=== PATIENT | male | born 1965 | race African-American/Black ===

== ENCOUNTER 2021-06-12 07:56 | Outpatient (CLI) | payer OTHER, SELFPAY ==
[2021-06-12 08:27] LABS: Absolute Lymphocyte Count 2.74 X10^3/uL (0.83-4.51); Absolute Neutrophil Count 3.1 X10^3/uL (2.0-7.7); Basophil# 0.04 X10^3/uL; Basophil% 0.6 % (0-1); Eosinophils% 5.8 % (0-5); Hematocrit 39.5 % (40-54); Hemoglobin 13.5 g/dL (13.0-16.5); Lymphocyte # 2.74 X10^3/ul (0.83-4.51); Lymphocyte % 39.9 % (19-41); Mean Corp Hgb Conc 34.2 g/dL (32-36); Mean Corpuscular Hgb 34.2 pg (27.0-32.0); Mean Platelet Vol. 8.3 fl (6.2-12.0); Monocyte# 0.53 X10^3/uL; Monocyte% 7.7 % (0-10); NRBC Flagged by Analyzer 0 % (0-5); Neutrophil # 3.14 X10^3/uL (2.7-7.7); Neutrophil % 45.7 % (47-70); Platelet Count 349 K/mm3 (150-450); RBC Distribution Width CV 11.9 % (11.6-14.6); RBC Distribution Width SD 44.4 fl (35.1-43.9); Red Blood Count 3.95 M/mm3 (4.6-6.2); White Blood Count 6.9 K/mm3 (4.4-11.0)
[2021-06-12 09:23] LABS: Hemoglobin A1c 5.8 % (3.8-5.6)
[2021-06-12 09:24] LABS: ALB/GLOB Ratio 0.9 RATIO (0.9-2.4); AST(SGOT) 19 U/L (15-37); Alanine Aminotransfer ALT/SGPT 38 U/L (16-61); Albumin, Serum 3.5 g/dL (3.2-5.0); Alkaline Phosphatase 121 U/L (45-117); Anion Gap 4 (5-15); BUN 12 mg/dL (7-18); BUN/Creat Ratio 15.7 RATIO (10-20); Calcium,Total 8.7 mg/dL (8.5-10.1); Chloride 108 mmol/L (98-107); Cholesterol 221 mg/dL (200); Creatinine, Serum 0.77 mg/dL (0.70-1.30); EST Glomerular Filtration Rate 112 mL/min (>60); Est Glom Filt Rate - Afr Amer 135 mL/min (>60); Globulin 4.1 g/dL (2.2-4.2); Glucose 105 mg/dL (74-106); High Density Lipoprotein 35 mg/dL; Potassium 3.7 mmol/L (3.5-5.1); Protein, Total 7.6 g/dL (6.4-8.2); Sodium Level 140 mmol/L (136-145); Thyroid Stim Hormone (TSH) 0.59 uIU/mL (0.358-3.74); Triglycerides 127 mg/dL; Very Low Density Lipoprotein 25 mg/dL (5-40)
[2021-06-14 08:58] LABS: Vitamin D,25 Hydroxy 27.9 ng/mL
[2021-06-14 15:55] LABS: PSA, Free 0.16 ng/mL; PSA, Total Ultrasensitive 0.4 ng/mL (0.0-4.0)
== END 2021-06-12 23:59 | disposition home or self-care (01) ==
PROVIDERS: PCP Nurse Practitioner Adult Health; Referring Provider Nurse Practitioner Adult Health; Visit Provider Nurse Practitioner Adult Health
DX: H53.60 Unspecified night blindness (principal); E66.9 Obesity, unspecified; Z13.220 Encounter for screening for lipoid disorders; Z13.21 Encounter for screening for nutritional disorder; Z12.5 Encounter for screening for malignant neoplasm of prostate
CPT/HCPCS: 36415; 80053; 80061; 82306; 83036; 84153; 84154; 84443; 85025

== ENCOUNTER → 2022-06-03 | Outpatient (CLI) | payer MEDICAID, SELFPAY ==
[2022-06-03 09:55] LABS: Hemoglobin A1c 10.6 % (3.8-5.6)
[2022-06-03 09:56] LABS: Anion Gap 11 (5-15); BUN 10 mg/dL (7-18); BUN/Creat Ratio 13.5 RATIO (10-20); Calcium,Total 9.3 mg/dL (8.5-10.1); Chloride 103 mmol/L (98-107); Cholesterol 202 mg/dL (200); Creatinine, Serum 0.74 mg/dL (0.70-1.30); EST Glomerular Filtration Rate 116 mL/min (>60); Est Glom Filt Rate - Afr Amer 140 mL/min (>60); Glucose 188 mg/dL (74-106); High Density Lipoprotein 34 mg/dL; Potassium 3.5 mmol/L (3.5-5.1); Sodium Level 140 mmol/L (136-145); Triglycerides 151 mg/dL; Very Low Density Lipoprotein 30 mg/dL (5-40)
== END | disposition home or self-care (01) ==
LOC: LAB 08:59
PROVIDERS: Visit Provider Nurse Practitioner Family
DX: I10 Essential (primary) hypertension (principal); R73.03 Prediabetes
CPT/HCPCS: 36415; 80048; 80061; 83036

== ENCOUNTER 2023-05-29 11:23 | Emergency (ER) | payer MEDICAID, SELFPAY ==
[2023-05-29 11:24] VITALS: BP 167/88; PULSE 64; RESP 16; TEMP 36.1; O2SAT 99; BMI 38.9
--- NOTE | 2023-05-29 11:41 | CT_ITS ---
STUDY: CTA HEAD AND NECK WITH CONTRAST REASON FOR EXAM: Male, 57 years old. Left-sided headaches. History of prior brain tumor resection. RADIATION DOSAGE (If Supplied By Facility): CTDIvol = ( 31.75 ) mGy, DLP = ( 1731.02 ) mGycm TECHNIQUE: CT angiography was performed with a multi-detector CT scanner. Data acquisition was obtained from the skull base through the vertex following intravenous administration of IV 100mL Isovue-370. MIP images were reconstructed from the axial data set. Post-processing of the angiographic images was performed, with multiplanar reformation and 3D reconstruction. Individualized dose optimization techniques were used for this CT. COMPARISON: No relevant priors. FINDINGS: Normal bilateral petrous carotid arteries. There is calcified plaque formation of the right cavernous carotid artery, without a cross-sectional luminal stenosis. There is calcified plaque formation of the left cavernous carotid artery, without a cross-sectional luminal stenosis. Normal right A1 segments of the anterior cerebral artery. Normal left A1 segments of the anterior cerebral artery. Normal intact anterior communicating artery (ACOM). Normal bilateral A2 segments of the anterior cerebral arteries. Normal right M1 and M2 segments of the middle cerebral arteries, with a normal M1 bifurcation. Normal left M1 and M2 segments of the middle cerebral arteries, with a normal M1 bifurcation. Normal right posterior communicating artery (PCOM). Normal left posterior communicating artery (PCOM). Normal bilateral vertebral arteries. Normal basilar artery with a normal basilar bifurcation. The visualized bilateral superior cerebellar (SCA) arteries are normal. Normal bilateral P1, P2 and visualized P3 segments of the posterior cerebral arteries. There is no demonstrated aneurysm of the [place]. There is no demonstrated abnormality of the visualized brain. Minimal mucosal thickening in the inferior aspects of the maxillary sinuses bilaterally. There is a 7.7 mm cystic change in the left lobe of the thyroid as well as a 1 cm hypodensity in the anterior right lobe of the thyroid. AORTIC ARCH: There is minimal atherosclerotic calcific plaque formation of the aortic arch and great vessels arising from the aortic arch, without a hemodynamically significant stenosis. There is a normal origin of the brachiocephalic, left common carotid, and left subclavian arteries. Normal origins of the brachiocephalic, left common carotid, and left subclavian arteries. RIGHT CAROTID ARTERIES: Normal right common carotid artery (CCA). Normal right common carotid bulb. There is mild atherosclerotic plaque formation of the origin of the right internal carotid artery with less than 50% cross sectional diameter stenosis. Normal visualized cervical portion of the right internal carotid artery. Normal origin of the right external carotid artery (ECA). LEFT CAROTID ARTERIES: Normal left common carotid artery (CCA). Normal left common carotid bulb. Normal origin of the left internal carotid (ICA) artery without a hemodynamically significant stenosis. Normal visualized cervical portion of the left internal carotid artery. Normal origin of the left external carotid artery (ECA). VERTEBRAL ARTERIES: Normal bilateral vertebral arteries. CT/CTA Head AND Neck W/ Contrast IMPRESSION: Minimal plaque formation at the origin of the right internal carotid artery. Minimal mucosal thickening of the maxillary sinuses bilaterally. Electronically Signed: Suman Austin MD at 12:55 EDT ,
--- NOTE | 2023-05-29 11:53 | EX.ED.VIS.HA ---
HPI <FATOU Watson - Last Filed: 05/29/23 14:06> History of Present Illness Chief Complaint: Headache Narrative Narrative: Patient presenting today due to a left sided throbbing headache that started abruptly around 7 AM this morning. He also reports pain to the left side of his neck. He reports that he was at work when the pain started. He reports that the pain is waxing and waning. 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 He does report family history of brain aneurysms in his aunt and cousin. He denies any photophobia, nausea, vomiting, vision changes, dizziness. PMH includes hypertension, hypothyroidism, and diabetes mellitus. PFSH <FATOU Watson - Last Filed: 05/29/23 14:06> PFSH Medical History Tumor cells, benign Home Medications guaifenesin 600 mg tablet, extended release 12 hr (Mucinex) 600 mg PO BID #14 tabs 05/29/23 [Rx Last Taken Unknown] loratadine 10 mg tablet (Claritin) 10 mg PO DAILY #14 tabs 05/29/23 [Rx Last Taken Unknown] Allergy/AdvReac Type Severity Reaction Status Date / Time No Known Allergies Allergy Verified 05/29/23 11:24 Social History Smoking Status: Current every day smoker tobacco type: cigarettes ROS <FATOU Watson - Last Filed: 05/29/23 14:06> ROS ED Constitutional Constitutional ED: Denies chills or fever(s) Eyes Eyes: Denies change in vision Cardiovascular Cardiovascular: Denies chest pain or palpitations Respiratory/Chest Respiratory/Chest: Denies cough or dyspnea Gastrointestinal Gastrointestinal: Denies abdominal pain, nausea or vomiting Musculoskeletal Musculoskeletal: Reports neck pain Integumentary Denies rash Neurologic Neurologic: Reports headache(s); Denies dizziness, paresthesias or weakness EXAM <FATOU Watson - Last Filed: 05/29/23 14:06> Physical Exam Const Vital Signs: 05/29/23 11:24 05/29/23 12:28 05/29/23 13:00 Temperature 97.0 F L Temperature Source Temporal Pulse Rate 64 53 L 65 Respiratory Rate 16 16 16 Blood Pressure 167/88 H 168/94 H 169/85 H Blood Pressure Mean 114 118 113 Pulse Ox 99 97 96 Oxygen Delivery Method Room Air Room Air Room Air 05/29/23 13:51 Temperature 98.2 F Temperature Source Pulse Rate 71 Respiratory Rate 12 Blood Pressure 134/77 H Blood Pressure Mean 96 Pulse Ox 96 Oxygen Delivery Method Positive well nourished, well developed and no apparent distress General Appearance ED: well developed HEENT Reports normocephalic and head/scalp atraumatic Mouth ED: Yes moist mucous membranes normal Eyes PERRL and EOMs intact bilaterally Neck full ROM and supple Chest Wall inspection of chest normal Resp normal respiratory effort and clear to auscultation bilaterally Cardio regular rate and regular rhythm GI soft to palpation, non-tender, non-distended and no masses Back/Spine normal ROM and normal to inspection Extremity normal to inspection and full ROM Neuro oriented x3, CN's II-XII intact bilaterally, moves all extremities, no focal motor deficits and no sensory deficits noted Sensorium / Orientation: awake and alert Motor Exam: strength 5/5 throughout Psych mental status grossly normal and thought process normal Skin no rashes or lesions noted and no wounds <Dr. Chanda Arevalo DO - Last Filed: 05/31/23 12:43> Physical Exam Const Vital Signs: 05/29/23 11:24 05/29/23 12:28 05/29/23 13:00 Temperature 97.0 F L Temperature Source Temporal Pulse Rate 64 53 L 65 Respiratory Rate 16 16 16 Blood Pressure 167/88 H 168/94 H 169/85 H Blood Pressure Mean 114 118 113 Pulse Ox 99 97 96 Oxygen Delivery Method Room Air Room Air Room Air 05/29/23 13:51 Temperature 98.2 F Temperature Source Pulse Rate 71 Respiratory Rate 12 Blood Pressure 134/77 H Blood Pressure Mean 96 Pulse Ox 96 Oxygen Delivery Method MDM <FATOU Watson - Last Filed: 05/29/23 14:06> [facility] Narrative Medical decision making narrative: Patient presenting today with headache that started abruptly around 7 AM this morning. He denies previous history of headaches. He does have a previous history of a benign brain tumor that was resected. He reports family history of brain aneurysm in his aunts and cousin. For this reason, CTA of the head and neck will be obtained as well as a noncontrast CT of the brain. He will be given IV fluids, Reglan, and Benadryl. Imaging shows minimal plaque formation at the right internal carotid artery, minimal mucosal thickening of the maxillary sinuses bilaterally. IV Toradol was added on.. On reexamination he reports improvement of his symptoms. He was given a prescription for Claritin and Mucinex. He is to follow-up with his PCP and will be discharged home in stable condition. Lab Data Attestation: I reviewed the patient's lab results. Lab results narrative: H&H 12.7 and 39.9 Labs: Laboratory Results - last 24 hr 05/29/23 12:00 WBC 7.3 RBC 3.94 L Hgb 12.7 L Hct 39.9 L MCV 101.3 H MCH 32.2 H MCHC 31.8 L RDW Std Deviation 47.2 H RDW Coeff of [place] 12.5 Plt Count 333 MPV 8.2 Immature Gran % (Auto) 0.300 Neut % (Auto) 49.0 Lymph % (Auto) 39.1 [place] % (Auto) 7.2 Eos % (Auto) 3.6 Baso % (Auto) 0.8 Absolute Neuts (auto) 3.6 Absolute Lymphs (auto) 2.86 Nucleated RBC % 0 Sodium 140 Potassium 3.7 Chloride 109 H Carbon Dioxide 28.0 Anion Gap 3 L BUN 10 Creatinine 0.78 Estim Creat Clear Calc 137.40 Est GFR (MDRD) Af Amer 131 Est GFR (MDRD) Non-Af 108 BUN/Creatinine Ratio 12.8 Glucose 116 H Calcium 8.7 Radiography Diagnostic Testing: Clinical Impression(s) from Imaging Studies Head/Neck CTA 05/29/23 11:41 IMPRESSION: Minimal plaque formation at the origin of the right internal carotid artery. Minimal mucosal thickening of the maxillary sinuses bilaterally. Electronically Signed: Suman Austin MD at 12:55 EDT , <Dr. Chanda Arevalo, DO - Last Filed: 05/31/23 12:43> MDM MDM Narrative Medical decision making narrative: Patient presenting today with headache that started abruptly around 7 AM this morning. He denies previous history of headaches. He does have a previous history of a benign brain tumor that was resected. He reports family history of brain aneurysm in his aunts and cousin. For this reason, CTA of the head and neck will be obtained as well as a noncontrast CT of the brain. He will be given IV fluids, Reglan, and Benadryl. Imaging shows minimal plaque formation at the right internal carotid artery, minimal mucosal thickening of the maxillary sinuses bilaterally. IV Toradol was added on.. On reexamination he reports improvement of his symptoms. He was given a prescription for Claritin and Mucinex. He is to follow-up with his PCP and will be discharged home in stable condition. I have personally performed a face to face assessment of the patient and have reviewed the TABITHA Note. I performed a substantive portion of the visit including all aspects of the following. My escobar findings include: History is patient is 57-year-old male presents and onset of left-sided headache that started at 7 AM this morning. Has a history of prior a benign brain tumor that was resected as well as family history of brain aneurysm. He is having focal neurologic deficits at this time. Is given IV Reglan and Benadryl as fluids and CT as well as CTA of the head and neck is obtained looking for signs of arachnoid hemorrhage, space-occupying lesion and aneurysm. Imaging is largely negative. He does have some nonspecific mucosal thickening of the maxillary sinuses bilaterally. Patient counseled that he could have a component of sinusitis is causing his headache. Given that he is within 6 hours of onset of symptoms I do not think requires LP or further evaluation for his headache and is safe for discharge home. Will be started on allergy medication to help with the sinuses. Encouraged follow-up with primary care doctor. Patient agreeable this plan of care. Patient is improvement of headache while in the emergency room. Patient does not have any overlying redness, significant tenderness to the sinuses and I do not think requires antibiotics at this time. Other additions or changes: [None] Lab Data Labs: Laboratory Results - last 24 hr 05/29/23 12:00 WBC 7.3 RBC 3.94 L Hgb 12.7 L Hct 39.9 L MCV 101.3 H MCH 32.2 H MCHC 31.8 L RDW Std Deviation 47.2 H RDW Coeff of [place] 12.5 Plt Count 333 MPV 8.2 Immature Gran % (Auto) 0.300 Neut % (Auto) 49.0 Lymph % (Auto) 39.1 [place] % (Auto) 7.2 Eos % (Auto) 3.6 Baso % (Auto) 0.8 Absolute Neuts (auto) 3.6 Absolute Lymphs (auto) 2.86 Nucleated RBC % 0 Sodium 140 Potassium 3.7 Chloride 109 H Carbon Dioxide 28.0 Anion Gap 3 L BUN 10 Creatinine 0.78 Estim Creat Clear Calc 137.40 Est GFR (MDRD) Af Amer 131 Est GFR (MDRD) Non-Af 108 BUN/Creatinine Ratio 12.8 Glucose 116 H Calcium 8.7 Radiography Diagnostic Testing: Clinical Impression(s) from Imaging Studies Head/Neck CTA 05/29/23 11:41 IMPRESSION: Minimal plaque formation at the origin of the right internal carotid artery. Minimal mucosal thickening of the maxillary sinuses bilaterally. Electronically Signed: Suman Austin MD at 12:55 EDT , Discharge Plan Triage Chief Complaint: Headache ED Midlevel Provider: Leeann Serna ED Provider: Chanda Arevalo Dx/Rx/DC Orders Clinical Impression: Headache, Sinusitis Instructions: ED, Migraine (Classical), ED Sinusitis (Not Bacterial) Prescriptions: New guaifenesin [Mucinex] 600 mg tablet extended release 12hr 600 mg PO BID Qty: 14 0RF loratadine [Claritin] 10 mg tablet 10 mg PO DAILY Qty: 14 0RF Primary Care Provider: [facility] Referrals: [facility] [Primary Care Provider] - Activity Restrictions/Additional Instructions: Please follow-up with your PCP and return for any worsening of your symptoms. Disposition Disposition: Home, Self Care Discharge Date/Time: 05/29/23 13:54
[2023-05-29] MEDS: Metoclopramide 10 MG/2 ML Vial 5 MG IV (12:01)
[2023-05-29] MEDS: 0.9% Normal Saline (1000mL) 1,000 ML 999 ML IV (12:01)
[2023-05-29] MEDS: DiphenhydrAMINE 50 MG/ML Syringe 25 MG IV (12:02)
[2023-05-29 12:13] LABS: Absolute Lymphocyte Count 2.86 X10^3/uL (0.83-4.51); Absolute Neutrophil Count 3.6 X10^3/uL (2.0-7.7); Basophil# 0.06 X10^3/uL; Basophil% 0.8 % (0-1); Eosinophil# 0.26 X10^3/uL; Eosinophils% 3.6 % (0-5); Hematocrit 39.9 % (40-54); Hemoglobin 12.7 g/dL (13.0-16.5); Lymphocyte # 2.86 X10^3/ul (0.83-4.51); Lymphocyte % 39.1 % (19-41); Mean Corp Hgb Conc 31.8 g/dL (32-36); Mean Corpuscular Hgb 32.2 pg (27.0-32.0); Mean Corpuscular Volume 101.3 fL (80-94); Mean Platelet Vol. 8.2 fl (6.2-12.0); Monocyte# 0.53 X10^3/uL; Monocyte% 7.2 % (0-10); NRBC Flagged by Analyzer 0 % (0-5); Neutrophil # 3.59 X10^3/uL (2.7-7.7); Platelet Count 333 K/mm3 (150-450); RBC Distribution Width CV 12.5 % (11.6-14.6); RBC Distribution Width SD 47.2 fl (35.1-43.9); Red Blood Count 3.94 M/mm3 (4.6-6.2); White Blood Count 7.3 K/mm3 (4.4-11.0)
[2023-05-29 12:23] LABS: Anion Gap 3 (5-15); BUN 10 mg/dL (7-18); BUN/Creat Ratio 12.8 RATIO (10-20); Calcium,Total 8.7 mg/dL (8.5-10.1); Chloride 109 mmol/L (98-107); Creatinine, Serum 0.78 mg/dL (0.70-1.30); EST Glomerular Filtration Rate 108 mL/min (>60); Est Glom Filt Rate - Afr Amer 131 mL/min (>60); Glucose 116 mg/dL (74-106); Potassium 3.7 mmol/L (3.5-5.1); Sodium Level 140 mmol/L (136-145)
[2023-05-29 12:28] VITALS: BP 168/94; PULSE 53; RESP 16; O2SAT 97
[2023-05-29 13:00] VITALS: BP 169/85; PULSE 65; RESP 16; O2SAT 96
[2023-05-29] MEDS: Ketorolac 15 MG/ML Vial IV (13:13)
[2023-05-29 13:51] VITALS: BP 134/77; PULSE 71; RESP 12; TEMP 36.8; O2SAT 96
== END 2023-05-29 13:54 | disposition home or self-care (01) ==
PROVIDERS: Physician Assistant; Emergency Provider Emergency Medicine; Visit Provider Emergency Medicine
DX: R51.9 Headache, unspecified (principal); E11.9 Type 2 diabetes mellitus without complications; J32.9 Chronic sinusitis, unspecified; F17.210 Nicotine dependence, cigarettes, uncomplicated
CPT/HCPCS: 70496; 70498; 80048; 85025; 96374; 96375; 99283; J7030; Q9967

== ENCOUNTER → 2023-06-14 | Outpatient (CLI) | payer MEDICAID, SELFPAY ==
[2023-06-14 16:31] LABS: T4 Free Direct 0.97 ng/dL (0.76-1.46); Thyroid Stim Hormone (TSH) 0.04 uIU/mL (0.358-3.74)
== END | disposition home or self-care (01) ==
LOC: LAB 14:36
PROVIDERS: Referring Provider Nurse Practitioner Family; Visit Provider Nurse Practitioner Family
DX: E03.9 Hypothyroidism, unspecified (principal)
CPT/HCPCS: 36415; 84439; 84443

== ENCOUNTER 2023-07-17 13:55 | Day surgery (SDC) | payer MEDICAID, SELFPAY ==
[2023-07-17 14:30] VITALS: BP 151/89; PULSE 61; RESP 16; TEMP 36.3; O2SAT 98; BMI 37.7
[2023-07-17] MEDS: Lactated Ringers 1,000 ML 15 ML IV (14:38)
--- NOTE | 2023-07-17 15:14 | HP.PCM_ITS ---
HPI - General HPI Narrative ALISA GRANT, is a 57 M who presents for surveillance colonoscopy. Patient has last colonoscopy 5 years ago and 3 polyps removed. He denies any abdominal pain or blood in the stool. He does not have family history of colon cancer. REPLACED BY [facility] Medical History (Updated 07/17/23 @ 15:[address] Rickey Castillo MD) Arthritis Diabetes History of pituitary adenoma HTN (hypertension) Hx of colonic polyps Hypothyroid Leg cramps Smoker Thyroid disease Tumor cells, benign Type 2 diabetes mellitus Wears glasses Home Medications amlodipine 10 mg tablet 10 mg PO DAILY 07/04/23 [History Last Taken 07/17/23] dulaglutide 0.75 mg/0.5 mL subcutaneous pen injector (Trulicity) 0.75 mg subcut QWEEK 07/04/23 [History Last Taken Unknown] levothyroxine 88 mcg capsule 88 mcg PO DAILY 07/04/23 [History Last Taken 0 07/17/23] Allergy/AdvReac Type Severity Reaction Status Date / Time No Known Allergies Allergy Verified 07/17/23 14:23 Surgical History (Updated 07/17/23 @ 14:35 by Maritza Martinez) History of brain surgery Hx of colonoscopy Social History (Updated 07/04/23 @ 08:21 by Mehreen Morgan) current occupational status: employed Smoking Status: Current every day smoker tobacco type: cigarettes Past Medical/Surgical History Planned Operation Planned Operative Procedure/s: cscope Previous Hospitalizations/Surgeries HX Hospitalizations: Yes (03/2022 brain tumor removed) Any Problems With Anesthesia: No You/Your Family Experience Fever (Hyperthermia) With Anes: No Cholinesterase deficiency: No Cardiovascular Hx Hypertension: Yes (controlled with med) Respiratory Hx Sleep Apnea: No Hx Respiratory Tract Infection/Cold (presently): No Do You Snore Loudly (louder than talking or can be heard): No Do You Often Feel Tired/ Fatigued/ Sleepy Dring Daytime?: No Has Anyone Observed You Stop Breathing During Sleep?: No Result (for STOP score): Negative Smoking Status: Current every day smoker Neurological Does patient have nerve stimulator: No Reproduction : No Miscellaneous Recent Exposure to Contagious Disease: No Allergies No Known Allergies Allergy (Verified 07/17/23 14:23) Discharge Is Pt Admitted From a Group Home, or a Halfway: No After D/C, Where Do you Plan to Go: Return Home Vital Signs Vital Signs Vital Signs: 07/17/23 14:30 07/17/23 14:30 Temperature 97.4 F L Temperature Source Temporal Pulse Rate 61 Respiratory Rate 16 Respiratory Pattern Normal Blood Pressure 151/89 H Blood Pressure Mean 109 Blood Pressure Source Monitor Blood Pressure Position Semi-Fowlers Blood Pressure Location Left Arm Pulse Ox 98 Oxygen Delivery Method Room Air Weight Weight: 270 lb 3.2 oz Body Mass Index (BMI) 37.7 Physical Exam Const alert and oriented x3 HEENT normocephalic Eyes PERRL Resp normal respiratory effort and normal air movement Cardio regular rate and regular rhythm GI soft to palpation, non-tender and non-distended Extremity normal to inspection Assessment & Plan Assessment/Plan (1) Hx of colonic polyps: PLAN: I explained endoscopy in detail to the patient. I explained the risks including but not limited to stroke or heart attack with anesthesia, perforation of the GI tract, bleeding, infection. I explained that any of these could necessitate further emergency surgery. The patient understands and all questions were answered sufficiently. The patient wishes to proceed with procedure. Rickey Castillo MD Pager: [facility] [address] [place] [address], [address] [place] [address] Office: Surgery Risks - Colonoscopy Risks Include but are not Limited To: Risks include but are not limited to: Bleeding, perforation requiring further surgery, inability to complete colonoscopy requiring barium enema.
[2023-07-17 15:19] LABS: Bedside Glucose 107 mg/dL (74-106)
--- NOTE | 2023-07-17 15:42 | OP.CCLET_ITS ---
07/17/2023 [place] [facility] Re : Colonoscopy procedure for Claudia Ahumada [facility] This procedure was performed on Monday, July 17, 2023. My impressions and recommendations are as follows: Impressions : - The entire examined colon is normal on direct and retroflexion views. - No specimens collected. Recommendations : - Discharge patient to home. - Resume previous diet. - Continue present medications. - Repeat colonoscopy in 10 years for screening purposes. My findings are described in the full procedure note, which is enclosed. If I can be of further assistance, please feel free to contact me at Doctor phone number(s): , Work: . Sincerely, Rickey Castillo MD 07/17/2023 3:42:03 PM This report has been signed electronically.
--- NOTE | 2023-07-17 15:42 | OP.COLON_ITS ---
Patient Name: Claudia Ahumada Procedure Date: 07/17/2023 3:17 PM Date of : 1965 Age: 57 Procedure: Colonoscopy Indications: High risk colon cancer surveillance: Personal history of colonic polyps Providers: Rickey Castillo MD Medicines: Propofol per Anesthesia Patient Profile: This is a 57 year old male. Refer to note in patient chart for documentation of history and physical. Last Colonoscopy: 5 years ago. Complications: No immediate complications. Procedure: Pre-Anesthesia Assessment: - Prior to the procedure, a History and Physical was performed, and patient medications and allergies were reviewed. The patient's tolerance of previous anesthesia was also reviewed. The risks and benefits of the procedure and the sedation options and risks were discussed with the patient. All questions were answered, and informed consent was obtained. Prior Anticoagulants: The patient has taken no anticoagulant or antiplatelet agents. After reviewing the risks and benefits, the patient was deemed in satisfactory condition to undergo the procedure. After I obtained informed consent, the scope was passed under direct vision. Throughout the procedure, the patient's blood pressure, pulse, and oxygen saturations were monitored continuously. The colonoscope was introduced through the anus and advanced to the cecum, identified by appendiceal orifice and ileocecal valve. The colonoscopy was performed without difficulty. The patient tolerated the procedure well. The quality of the bowel preparation was good. The ileocecal valve, appendiceal orifice, and rectum were photographed. Scope In: 3:28:17 PM Scope Withdrawal Time 0 hours 5 minutes 47 seconds Scope Out: 3:39:04 PM Total Procedure Duration Time 0 hours 10 minutes 47 seconds Findings: The entire examined colon appeared normal on direct and retroflexion views. Impression: - The entire examined colon is normal on direct and retroflexion views. - No specimens collected. Recommendation: - Discharge patient to home. - Resume previous diet. - Continue present medications. - Repeat colonoscopy in 10 years for screening purposes. Procedure Code(s): --- Professional --- 28037, Colonoscopy, flexible; diagnostic, including collection of specimen(s) by brushing or washing, when performed (separate procedure) Diagnosis Code(s): --- Professional --- Z86.010, Personal history of colonic polyps CPT copyright 2021 [employer]. All rights reserved. The codes documented in this report are preliminary and upon injection mold technician review may be revised to meet current compliance requirements. Rickey Castillo MD 07/17/2023 3:42:03 PM This report has been signed electronically. Number of Addenda: 0 Note Initiated On: 07/17/2023 3:17 PM
[2023-07-17 15:45] VITALS: BP 124/74; BP 151/89; PULSE 57; RESP 16; TEMP 36.2; O2SAT 97
[2023-07-17 15:50] VITALS: BP 127/72; BP 151/89; PULSE 54; RESP 16; O2SAT 64
[2023-07-17 15:55] VITALS: BP 123/83; BP 151/89; PULSE 50; RESP 18; O2SAT 98
[2023-07-17 16:00] VITALS: BP 124/75; BP 151/89; PULSE 53; RESP 18; TEMP 36.1; O2SAT 98
[2023-07-17 16:13] VITALS: BP 151/89
== END 2023-07-17 16:17 | disposition home or self-care (01) ==
LOC: EN 13:57 → AC 13:58
PROVIDERS: Visit Provider Surgery
PROC: 0DJD8ZZ Inspection of Lower Intestinal Tract, Via Natural or Artificial Opening Endoscopic (ICD-10-PCS; CPT 45378; principal; 2023-07-17 15:25)
DX: Z12.11 Encounter for screening for malignant neoplasm of colon (principal); E11.9 Type 2 diabetes mellitus without complications; I10 Essential (primary) hypertension; F17.210 Nicotine dependence, cigarettes, uncomplicated; Z86.010 Personal history of colon polyps; Z79.899 Other long term (current) drug therapy; E03.9 Hypothyroidism, unspecified
CPT/HCPCS: 45378; 82962; J7120

== ENCOUNTER → 2023-09-26 | Outpatient (CLI) | payer MEDICAID, SELFPAY ==
--- NOTE | 2023-09-26 14:50 | RAD_ITS ---
STUDY: X-RAY - LUMBAR SPINE REASON FOR EXAM: Male, 57 years old. SCIATICA RIGHT SIDE TECHNIQUE: 3 view(s) of the lumbar spine were obtained. COMPARISON: None FINDINGS: Normal lumbar lordosis. There is no substantial scoliosis. There is a normal alignment of the vertebrae. Normal vertebral bodies and endplates. Normal disc space heights. The soft tissue structures are unremarkable. RAD/Lumbar Spine 2 or 3 Views IMPRESSION: No acute bony injury of the lumbar spine. Electronically Signed: Fermin Linares DO at 15:41 EDT ,
== END | disposition home or self-care (01) ==
PROVIDERS: Referring Provider Nurse Practitioner Family; Visit Provider Nurse Practitioner Family
DX: M54.31 Sciatica, right side (principal)
CPT/HCPCS: 72100

== ENCOUNTER 2023-10-11 01:28 | Emergency (ER) | payer MEDICAID, SELFPAY ==
[2023-10-11 01:29] VITALS: BP 165/86; PULSE 73; RESP 16; TEMP 37.1; O2SAT 98; BMI 40.4
--- NOTE | 2023-10-11 01:57 | RAD_ITS ---
EXAM: XR RIGHT HIP WITH PELVIS WHEN PERFORMED, 2 OR 3 VIEWS CLINICAL INDICATION: pain pain TECHNIQUE: Two or three views of the right hip with pelvis when performed. COMPARISON: No relevant prior studies available. FINDINGS: BONES/JOINTS: Unremarkable. No displaced fracture. No destructive or sclerotic lesions. Note that overlapping bowel shadows may however obscure fine detail. Sacroiliac joint is unremarkable. No widening of the pubic symphysis. The articular structures are unremarkable. SOFT TISSUES: Unremarkable. No soft tissue swelling or gas. RAD/HIP, UNI W/ Pelvis 2-3 Views IMPRESSION: No evidence of displaced pelvic or hip fracture. Electronically Signed: Neno Jackson MD at 3:08 EDT Reading Location ID and State: [facility] / [place] , Service support ,
--- NOTE | 2023-10-11 01:58 | EDS_ITS ---
HPI History of Present Illness Chief Complaint: Lower Extremity Injury Detail of Chief Complaint: Right hip pain Informant: patient Narrative Narrative: Patient presents with pain in his right hip that has had for about 2 to 3 weeks. He denies any injury. Patient states the pain is gotten progressively worse. Patient states that he came home from work today and was having a lot of discomfort so he comes in for evaluation. Patient denies any fevers or chills or sweats. Denies any weakness to extremities. Pain worse with certain movements. At times the pain radiates from the hip down the back of the leg to about the knee. He denies any paresthesias. Denies loss of bowel or bladder function. Denies back pain. [facility] Medical History (Updated 10/11/23 @ 03:[address] Terry Sarmiento, DO) Wears glasses Thyroid disease Arthritis Diabetes Leg cramps Smoker Hypothyroid History of pituitary adenoma Type 2 diabetes mellitus HTN (hypertension) Hx of colonic polyps Tumor cells, benign Home Medications ?Medication ?Instructions ?Recorded ?Last Taken ?Type amlodipine 10 mg tablet 10 mg PO DAILY 07/04/23 07/17/23 History dulaglutide 0.75 mg/0.5 mL 0.75 mg subcut QWEEK 07/04/23 Unknown History subcutaneous pen injector (Trulicity) levothyroxine 88 mcg capsule 88 mcg PO DAILY 07/04/23 07/17/23 History hydrocodone-acetaminophen 5-325mg 1 tab PO Q4H PRN PRN Pain 2 days 10/11/23 Unknown Rx 5mg-325mg #14 TABLETS Allergy/AdvReac Type Severity Reaction Status Date / Time No Known Allergies Allergy Verified 10/11/23 01:33 Surgical History History of brain surgery Hx of colonoscopy Social History (Updated 07/04/23 @ 08:21 by Mehreen Morgan) current occupational status: employed Smoking Status: Current every day smoker tobacco type: cigarettes ROS ROS ED Review of Systems ROS Unobtainable: other Constitutional Constitutional ED: Reports lethargy; Denies chills, fever(s), sweats or weight loss Eyes Eyes: Denies blurry vision, change in vision or diplopia ENT ENT ED: Denies rhinorrhea or sore throat Cardiovascular Cardiovascular: Denies chest pain, orthopnea or racing heartbeat Respiratory/Chest Respiratory/Chest: Denies cough, dyspnea, dyspnea on exertion, orthopnea or sputum Gastrointestinal Gastrointestinal: Denies abdominal pain, diarrhea, nausea or vomiting Genitourinary Genitourinary ED: Denies dysuria, hematuria or urinary frequency Musculoskeletal Musculoskeletal: Reports other Details: Right hip pain ; Denies arthralgias, back pain, myalgias or neck pain Integumentary Denies abscess, Abrasions or rash Neurologic Neurologic: Denies headache(s) or weakness Psychiatric Psychiatric: Denies anxiety, depression or suicidal thoughts Endocrine Endocrinology: Denies polydipsia, polyphagia or polyuria Hematologic/Lymphatic Hematologic/Lymphatic: Denies easy bleeding, easy bruising or lymphadenopathy Allergic/Immunologic Allergic/Immunologic ED: Denies mouth swelling, tongue swelling or urticaria EXAM Physical Exam Const Vital Signs: 10/11/23 01:29 Temperature 98.7 F Temperature Source Oral Pulse Rate 73 Respiratory Rate 16 Blood Pressure 165/86 H Blood Pressure Mean 112 Pulse Ox 98 Oxygen Delivery Method Room Air Positive well nourished and well developed General Appearance ED: well developed and NAD HEENT Reports TM's clear and moist mucous membranes normocephalic and atraumatic; Negative for trauma or tenderness Tympanic Membrane ED: Yes TM's clear Eyes PERRL and EOMs intact bilaterally General Eye ED: Negative for pale conjunctiva or scleral icterus Neck no lymphadenopathy, supple and no JVD General: Negative for tenderness Chest Wall inspection of chest normal and palpation of chest normal Chest: Negative for tenderness Resp normal respiratory effort and clear to auscultation bilaterally Effort and Inspection: Negative for respiratory distress or pain with movement Auscultation: Negative for rhonchi, wheezes or diminished lung sounds Cardio regular rate, regular rhythm, S1 normal heart sound, S2 normal heart sound and no murmurs Peripheral Pulses: pulses 2+ throughout GI normal to inspection, nondistended, normoactive bowel sounds, soft to palpation, non-tender, non-distended and no masses Back/Spine no CVA tenderness and no thoracic nor lumbar tenderness Extremity Extremity Narrative: Right hip-no erythema or warmth noted. There is no soft tissue swelling. Negative straight leg raises. He does have some pain to palpation over the right hip. Pain with lowering of the leg after flexing it at the hip. Deep tendon reflexes plus 2 out of 4 bilaterally at the patella and Achilles. Patient has normal L5 extension. He has normal sensation to light touch. General Extremety ED: Negative for edema General Extremity: Negative for edema Neuro oriented x3, CN's II-XII intact bilaterally, no sensory deficits noted and gait normal Sensorium / Orientation: awake, alert, oriented to person, oriented to place and oriented to time Motor Exam: strength 5/5 throughout and strength abnormal Psych mental status grossly normal Skin no rashes or lesions noted and no wounds MDM MDM MDM Narrative Medical decision making narrative: Patient presents to the emergency department with right hip pain is atraumatic and has had it for 2 to 3 weeks. He denies fevers or chills or sweats. Pain worse with movement. In the differential would be arthritis versus bursitis versus sciatica. Patient had x-rays of the right hip and pelvis that was unremarkable. Patient was medicated with Dilaudid 1 mg IM and he had good pain relief with that. At this point he will be discharged to home. He will be referred to orthopedics for follow-up. He will be given a prescription for a few [place] for pain. He will be given crutches as needed for comfort. He has no signs or symptoms of cauda equina. Lab Data Attestation: I reviewed the patient's lab results. Radiography Diagnostic Testing: Clinical Impression(s) from Imaging Studies Hip/Pelvis X-Ray 10/11/23 01:57 IMPRESSION: No evidence of displaced pelvic or hip fracture. Electronically Signed: Neno Jackson MD at 3:08 EDT Reading Location ID and State: [facility] / [place] , Service support , Three-view x-rays of right hip and pelvis obtained interpreted by myself as no evidence of fracture or acute process. Radiology in agreement. Discharge Plan Triage Chief Complaint: Lower Extremity Injury ED Provider: Terry Sarmiento Dx/Rx/DC Orders Clinical Impression: Acute pain of right hip Instructions: ED Pain, Acute, Uncertain Cause Prescriptions: New hydrocodone-acetaminophen 5-325 mg tablet 1 tab PO Q4H PRN PRN (Reason: Pain) 2 Days Qty: 14 0RF No Action Trulicity 0.75 mg/0.5 mL pen injector 0.75 mg subcut QWEEK levothyroxine 88 mcg capsule 88 mcg PO DAILY amlodipine 10 mg tablet 10 mg PO DAILY Primary Care Provider: Guillermina Stevenson [facility] Referrals: Jerrell Pepe DO [Med Staff - Active Staff] - 3-5 Days [facility],Flor Sahu [Non-Staff] - Print Language: Tristanian Disposition Disposition: Home, Self Care
[2023-10-11] MEDS: HYDROmorphone 1 MG/ML Syringe IM (02:07)
[2023-10-11 03:29] VITALS: BP 155/80; PULSE 90; RESP 16; TEMP 36.8; O2SAT 99
== END 2023-10-11 04:27 | disposition home or self-care (01) ==
PROVIDERS: Emergency Provider Emergency Medicine; PCP Nurse Practitioner Family; Visit Provider Emergency Medicine
DX: M25.551 Pain in right hip (principal); E11.9 Type 2 diabetes mellitus without complications; F17.210 Nicotine dependence, cigarettes, uncomplicated
CPT/HCPCS: 73502; 96372; 99283

== ENCOUNTER → 2023-10-19 | Outpatient (CLI) | payer MEDICAID, SELFPAY ==
[2023-10-19 10:10] LABS: Uric Acid 5.6 mg/dL (3.5-7.2)
== END | disposition home or self-care (01) ==
PROVIDERS: PCP Nurse Practitioner Family; Referring Provider Orthopaedic Surgery; Visit Provider Orthopaedic Surgery
DX: M25.551 Pain in right hip (principal)
CPT/HCPCS: 36415; 84550

== ENCOUNTER → 2023-11-13 | Outpatient (CLI) | payer MEDICAID, SELFPAY ==
--- NOTE | 2023-11-13 08:10 | MRI_ITS ---
STUDY: MRI RIGHT HIP REASON FOR EXAM: Male, 58 years old. Pain - Rule out avascular necrosis. TECHNIQUE: Standardized fat and water weighted pulse sequences were obtained in all 3 orthogonal planes. COMPARISON: Pelvis and right hip radiographs dated 10/11/2023. FINDINGS: There is linear low signal in the right femoral neck, with extensive surrounding marrow edema (axial PD obliques series 8 image 13; coronal STIR series 5 images 15-16), suspicious for a nondisplaced trabecular stress fracture. There is a small to moderate right hip joint effusion. Intact acetabulum. Normal labrum. Normal gluteus minimus, medius and iliopsoas tendons and distal insertions. There is no trochanteric, iliopsoas or iliopectineal bursitis. Normal superior and inferior pubic rami. There is mild pubic symphysis arthrosis. Normal ischial tuberosity. Normal origin of the hamstring tendons. Normal visualized iliac wing, sacroiliac joint, and sacral ala. MRI/Lower Ext Joint Only (Routine) IMPRESSION: Linear low signal in the right femoral neck, with extensive surrounding marrow edema, suspicious for a nondisplaced trabecular stress fracture. Small to moderate right hip joint effusion. Electronically Signed: Juan Carlos Tracy MD at 9:43 EDT ,
== END | disposition home or self-care (01) ==
PROVIDERS: PCP Nurse Practitioner Family; Referring Provider Orthopaedic Surgery; Visit Provider Orthopaedic Surgery
DX: M25.551 Pain in right hip (principal)
CPT/HCPCS: 73721

== ENCOUNTER → 2023-11-23 | Outpatient (CLI) | payer MEDICAID, SELFPAY ==
[2023-11-23 09:26] LABS: Absolute Lymphocyte Count 3.07 X10^3/uL (0.83-4.51); Absolute Neutrophil Count 3.7 X10^3/uL (2.0-7.7); Basophil# 0.06 X10^3/uL; Basophil% 0.8 % (0-1); Eosinophil# 0.33 X10^3/uL; Eosinophils% 4.3 % (0-5); Hematocrit 40.9 % (40-54); Hemoglobin 13.3 g/dL (13.0-16.5); Lymphocyte # 3.07 X10^3/ul (0.83-4.51); Lymphocyte % 39.7 % (19-41); Mean Corp Hgb Conc 32.5 g/dL (32-36); Mean Corpuscular Hgb 32.3 pg (27.0-32.0); Mean Corpuscular Volume 99.3 fL (80-94); Mean Platelet Vol. 8.3 fl (6.2-12.0); Monocyte# 0.56 X10^3/uL; Monocyte% 7.2 % (0-10); NRBC Flagged by Analyzer 0 % (0-5); Neutrophil # 3.71 X10^3/uL (2.7-7.7); Neutrophil % 47.9 % (47-70); Platelet Count 385 K/mm3 (150-450); RBC Distribution Width CV 11.9 % (11.6-14.6); RBC Distribution Width SD 43.9 fl (35.1-43.9); Red Blood Count 4.12 M/mm3 (4.6-6.2); White Blood Count 7.7 K/mm3 (4.4-11.0)
[2023-11-23 09:40] LABS: Lactic Acid 1.4 mmol/L (0.4-1.9)
== END | disposition home or self-care (01) ==
PROVIDERS: PCP Nurse Practitioner Family; Referring Provider Orthopaedic Surgery; Visit Provider Orthopaedic Surgery
DX: M25.551 Pain in right hip (principal)
CPT/HCPCS: 36415; 83605; 85025; 86140

== ENCOUNTER → 2023-12-04 | Outpatient (CLI) | payer MEDICAID, SELFPAY ==
--- NOTE | 2023-12-04 13:51 | RAD_ITS ---
PROCEDURE: Fluoroscopic guided right hip aspiration. DATE: December 04, 2023. INDICATION: Male, 58 years old. Possible infection. PHYSICIAN: Suman Austin M.D. ACCESS SITE: Right hip. NEEDLE: 22-gauge spinal needle. FLUOROSCOPY TIME (if supplied): (0:19) minutes/seconds. 9.8 mGy. 2 images were submitted. FINDINGS: The risks, benefits, and alternatives to the procedure were explained to the patient. The specific risks of bleeding, infection, and neurovascular injury were detailed and accepted. Witnessed informed consent was obtained. A 22-gauge spinal needle was positioned under radiographic fluoroscopic localization. Approximately 2 cc of Isovue-300 instilled for localization purposes. No aspirate was obtained. The patient tolerated the procedure well without any immediate complications. RAD/Inj/Asp Elio Jt Should/Hip/Knee IMPRESSION: 1. No fluid was aspirated from the hip joint. Electronically Signed: Suman Austin MD at 7:59 EDT ,
[2023-12-04] MEDS: Lidocaine 2% (5ml sdv) 5 ML VIAL.MPF INFILT (14:15)
== END | disposition home or self-care (01) ==
LOC: RAD 13:50
PROVIDERS: PCP Nurse Practitioner Family; Referring Provider Orthopaedic Surgery; Visit Provider Orthopaedic Surgery
DX: M25.551 Pain in right hip (principal)
CPT/HCPCS: 20610; 77002; Q9967

== ENCOUNTER → 2024-01-30 | Outpatient (CLI) | payer MEDICAID, SELFPAY ==
[2024-01-30 17:07] LABS: Absolute Neutrophil Count 4.3 X10^3/uL (2.0-7.7); Basophil# 0.05 X10^3/uL; Basophil% 0.6 % (0-1); Eosinophils% 3.5 % (0-5); Hematocrit 42.1 % (40-54); Hemoglobin 13.6 g/dL (13.0-16.5); Lymphocyte % 38.9 % (19-41); Mean Corp Hgb Conc 32.3 g/dL (32-36); Mean Corpuscular Hgb 32.5 pg (27.0-32.0); Mean Corpuscular Volume 100.7 fL (80-94); Monocyte# 0.55 X10^3/uL; Monocyte% 6.5 % (0-10); NRBC Flagged by Analyzer 0 % (0-5); Neutrophil # 4.28 X10^3/uL (2.7-7.7); Neutrophil % 50.4 % (47-70); Platelet Count 364 K/mm3 (150-450); RBC Distribution Width SD 44.7 fl (35.1-43.9); Red Blood Count 4.18 M/mm3 (4.6-6.2); White Blood Count 8.5 K/mm3 (4.4-11.0)
[2024-01-30 17:44] LABS: Vitamin D,25 Hydroxy 10.8 ng/mL
[2024-01-30 17:49] LABS: AST(SGOT) 18 U/L (15-37); Alanine Aminotransfer ALT/SGPT 28 U/L (16-61); Albumin, Serum 3.8 g/dL (3.2-5.0); Alkaline Phosphatase 124 U/L (45-117); Anion Gap 6 (5-15); BUN 15 mg/dL (7-18); Calcium,Total 9.2 mg/dL (8.5-10.1); Chloride 108 mmol/L (98-107); Creatinine, Serum 0.88 mg/dL (0.70-1.30); EST Glomerular Filtration Rate 94 mL/min (>60); Est Glom Filt Rate - Afr Amer 114 mL/min (>60); Globulin 3.9 g/dL (2.2-4.2); Glucose 86 mg/dL (74-106); Protein, Total 7.7 g/dL (6.4-8.2); Sodium Level 140 mmol/L (136-145); Thyroid Stim Hormone (TSH) 0.048 uIU/mL (0.358-3.740)
== END | disposition home or self-care (01) ==
LOC: VSLAB 15:41
PROVIDERS: PCP Nurse Practitioner Family; Visit Provider Nurse Practitioner Family
DX: E03.9 Hypothyroidism, unspecified (principal); E11.9 Type 2 diabetes mellitus without complications; M84.359D Stress fracture, hip, unspecified, subsequent encounter for fracture with routine healing
CPT/HCPCS: 36415; 80053; 82306; 84439; 84443; 85025

== ENCOUNTER → 2024-03-21 | Outpatient (CLI) | payer MEDICAID, SELFPAY ==
--- NOTE | 2024-03-21 15:07 | BD_ITS ---
STUDY: DUAL ENERGY X-RAY ABSORPTIOMETRY / DXA REASON FOR EXAM: Male, 58 years old. M84.359D TECHNIQUE: Bone Mineral Density (BMD) measurements of lumbar spine and left hip were obtained. COMPARISON: None. FINDINGS: Lumbar Spine (L1-L4): g/cm2 (1.016) / T-score (-1.7) / Z-score (-1.0) Findings are suggestive of osteopenia with a moderate fracture risk. Left Femur Total: g/cm2 (0.984) / T-score (-1.1) / Z-score (-0.3) Left Femoral Neck: g/cm2 (0.766) / T-score (-2.0) / Z-score (-0.8) BD/Dexa Bone Density Study IMPRESSION: The patient is considered osteopenic as outlined below according to World Campbell Organization (WHO) criteria with a moderate fracture risk. Reference Information: The T-score is the number of standard deviations above or below the standard which is normal for young adults at their peak bone mineral density. The World Health Organization (WHO) interprets the T-scores as follows: Above -1 Normal bone density Between -1 and -2.5 Osteopenia Equal to / or below -2.5 Osteoporosis As a practical clinical guideline, osteopenia may be graded as follows: Mild -1 through -1.5 Moderate -1.6 through -2.0 Severe -2.1 through -2.4 The Z-score is the number of standard deviations above or below age-matched controls. A Z-score of less than -1.5 would be considered abnormal. References: 1. NIH Osteoporosis and Related Bone Diseases www osteo.org 2. International Society for Clinical Densitometry www iscd.org 3. National Osteoporosis Foundation www nof.org Electronically Signed: Suman Austin MD at 9:07 EST ,
== END | disposition home or self-care (01) ==
PROVIDERS: PCP Nurse Practitioner Family; Referring Provider Nurse Practitioner Family; Visit Provider Nurse Practitioner Family
DX: M84.359D Stress fracture, hip, unspecified, subsequent encounter for fracture with routine healing (principal)
CPT/HCPCS: 77080

== ENCOUNTER → 2024-05-01 | Outpatient (CLI) | payer MEDICAID, SELFPAY ==
[2024-05-01 17:30] LABS: Free T3 2.5 pg/mL (2.18-3.98); T4 Free Direct 1.13 ng/dL (0.76-1.46); T4 Total, Thyroxin 8.6 ug/dL (4.5-12.1); Thyroid Stim Hormone (TSH) 0.018 uIU/mL (0.358-3.740)
== END | disposition home or self-care (01) ==
LOC: VSLAB 15:26
PROVIDERS: PCP Nurse Practitioner Family
DX: E03.9 Hypothyroidism, unspecified (principal)
CPT/HCPCS: 36415; 84436; 84439; 84443; 84481

== ENCOUNTER → 2024-11-06 | Outpatient (CLI) | payer BC, SELFPAY ==
[2024-11-06 16:52] LABS: Hematocrit 38.3 % (40-54); Hemoglobin 12.5 g/dL (13.0-16.5); Immature Granulocytes Count 0.010 X10^3/uL (0.0-0.0); Mean Corp Hgb Conc 32.6 g/dL (32-36); Mean Corpuscular Volume 100.3 fL (80-94); Mean Platelet Vol. 8.7 fl (6.2-12.0); NRBC Flagged by Analyzer 0 % (0-5); Platelet Count 333 K/mm3 (150-450); RBC Distribution Width CV 11.8 % (11.6-14.6); RBC Distribution Width SD 42.9 fl (35.1-43.9); Red Blood Count 3.82 M/mm3 (4.6-6.2); White Blood Count 7.8 K/mm3 (4.4-11.0)
[2024-11-06 17:14] LABS: AST(SGOT) 17 U/L (<=37); Alanine Aminotransfer ALT/SGPT 17 U/L (<=46); Albumin, Serum 4.1 g/dL (3.5-5.0); Alkaline Phosphatase 105 U/L (40-129); Anion Gap 11 (5-15); BUN 17 mg/dL (4-19); BUN/Creat Ratio 22.6 RATIO (10-20); Calcium,Total 9.3 mg/dL (7.6-11.0); Carbon Dioxide 23.8 mmol/L (21.0-32.0); Chloride 105 mmol/L (98-108); Globulin 2.8 g/dL (2.2-4.2); Glucose 81 mg/dL (70-99); Potassium 4.0 mmol/L (3.3-5.1)
[2024-11-07 15:22] LABS: Vitamin B12 597 pg/mL (180-914)
[2024-11-07 16:28] LABS: Iron 64 ug/dL (65-175); Iron Binding Capacity,Total 305 ug/dL (250-450); Iron Binding Capacity,Unsat 241 ug/dL (228-428)
== END | disposition home or self-care (01) ==
LOC: VSLAB 15:46
PROVIDERS: PCP Nurse Practitioner Family; Referring Provider Nurse Practitioner Family; Visit Provider Nurse Practitioner Family
DX: E11.9 Type 2 diabetes mellitus without complications (principal); D64.9 Anemia, unspecified
CPT/HCPCS: 36415; 80053; 82607; 83540; 83550; 85025